=== PATIENT | male | born 1985 ===

== ENCOUNTER 2019-09-25 11:17 | Emergency (ER) | payer SELFPAY ==
[2019-09-25 12:15] LABS: Basophils # (Auto) 0.1 K/mm3 (0.0-0.1); Basophils % (Auto) 0.4 % (0.0-1.8); Hematocrit 42.2 % (35.5-45.6); Hemoglobin 14.5 gm/dl (11.8-15.2); Lymphocytes # (Auto) 1.2 K/mm3 (1.2-5.4); Lymphocytes % (Auto) 7.4 % (13.4-35.0); Mean Corpuscular HGB Conc 34 % (32-34); Mean Corpuscular Volume 90 fl (84-94); Monocytes % (Auto) 6.2 % (0.0-7.3); Platelet Count 342 K/mm3 (140-440); Red Blood Count 4.72 M/mm3 (3.65-5.03)
[2019-09-25 12:39] LABS: Alanine Aminotransferase 57 units/L (7-56); Albumin 5.1 g/dL (3.9-5); BUN/Creatinine Ratio 14; Blood Urea Nitrogen 14 mg/dL (9-20); Calcium 9.9 mg/dL (8.4-10.2); Hemolysis Index 7
--- NOTE | 2019-09-25 14:31 | Emergency Department Report ---
<JG SANON - Last Filed: 09/25/19 15:41> ED General Adult HPI - General Chief complaint: Psych Stated complaint: HALLUCINATIONS Time Seen by Provider: 09/25/19 11:26 - Related Data Allergies Allergy/AdvReac Type Severity Reaction Status Date / Time No Known Allergies Allergy Unverified 09/25/19 11:35 ED Course - Reevaluation(s) Reevaluation #1: 09/25/19 15:41 I was asked to reassess patient. This gentleman is paranoid agitated. He is breaking his hands against a wall. He keeps asking "are we going to "" "I do not know if I killed her "" I asked if he would allow us to give him medicine. He said yes. I have ordered Geodon for chemical restraint ED Medical Decision Making - Lab Data Result diagrams: 09/25/19 11:50 09/25/19 11:50 ED Disposition Clinical Impression: Psychosis, Methamphetamine use Disposition: [id number]/TX-65 PSY HOSP/PSY UNIT Condition: Stable Referrals: PRIMARY CARE, [Primary Care Provider] - 3-5 Days <WALLACE SULTANA - Last Filed: 09/26/19 15:21> ED General Adult HPI - General Source: patient Mode of arrival: Ambulatory Limitations: No Limitations - History of Present Illness Initial comments: Patient presents to the emergency department via EMS via a call from local PD for patient walking in the middle of traffic. They state that PD was concerned because patient was paranoid. Patient endorses using methamphetamine with " 2 white girls". Patient states that he is used methamphetamine twice in the last couple of weeks but normally does not use it. Patient denies a history of psychiatric issues and also denies homicidal suicidal ideation. Patient states earlier today he was seeing pains and hearing things but that has improved significantly. Patient states he currently does not want hurt himself or hurt anyone else. -: Sudden Severity scale (0 -10): 0 Consistency: constant Improves with: none Worsens with: none Associated Symptoms: denies other symptoms Treatments Prior to Arrival: none ED Review of Systems ROS: Stated complaint: HALLUCINATIONS Other details as noted in HPI Comment: All other systems reviewed and negative Constitutional: denies: chills, fever Eyes: denies: eye pain, eye discharge, vision change ENT: denies: ear pain, throat pain Respiratory: denies: cough, shortness of breath, wheezing Cardiovascular: denies: chest pain, palpitations Endocrine: no symptoms reported Gastrointestinal: denies: abdominal pain, nausea, diarrhea Genitourinary: denies: urgency, dysuria Musculoskeletal: denies: back pain, joint swelling, arthralgia Skin: denies: rash, lesions Neurological: denies: headache, weakness, paresthesias Psychiatric: denies: anxiety, depression Hematological/Lymphatic: denies: easy bleeding, easy bruising ED Past Medical Hx - Past Medical History Previous Medical History?: No - Surgical History Past Surgical History?: No Additional Surgical History: R leg - Social History Smoking Status: Current Every Day Smoker Substance Use Type: Alcohol, Cocaine, Marijuana, Methamphetamines ED Physical Exam - General Limitations: No Limitations General appearance: alert, in no apparent distress - Head Head exam: Present: atraumatic, normocephalic - Eye Eye exam: Present: normal appearance, PERRL, EOMI - ENT ENT exam: Present: mucous membranes moist - Neck Neck exam: Present: normal inspection - Respiratory Respiratory exam: Present: normal lung sounds bilaterally. Absent: respiratory distress - Cardiovascular Cardiovascular Exam: Present: regular rate, normal rhythm. Absent: systolic murmur, diastolic murmur, rubs, gallop - GI/Abdominal GI/Abdominal exam: Present: soft, normal bowel sounds. Absent: distended, tenderness - Rectal Rectal exam: Present: deferred - Extremities Exam Extremities exam: Present: normal inspection - Back Exam Back exam: Present: normal inspection - Neurological Exam Neurological exam: Present: alert, oriented X3 - Psychiatric Psychiatric exam: Present: normal affect, normal mood. Absent: homicidal ideati on, suicidal ideation - Skin Skin exam: Present: warm, dry, intact, normal color. Absent: rash ED Course Vital Signs 09/25/19 09/25/19 09/25/19 11:44 14:22 15:30 Temperature 98.4 F Pulse Rate 110 H 89 Respiratory 22 18 18 Rate Blood Pressure 160/100 164/97 [Left] O2 Sat by Pulse 100 Oximetry 09/25/19 09/25/19 09/26/19 16:54 20:10 02:05 Temperature 98.3 F 98.4 F Pulse Rate 73 74 Respiratory 15 18 16 Rate Blood Pressure 137/77 152/91 [Left] O2 Sat by Pulse 100 99 Oximetry 09/26/19 08:47 Temperature 98.6 F Pulse Rate 75 Respiratory 20 Rate Blood Pressure 128/89 [Left] O2 Sat by Pulse 98 Oximetry ED Medical Decision Making - Lab Data Result diagrams: 09/25/19 11:50 09/25/19 11:50 - Medical Decision Making awaiting medical clearance and Mental Health Evaluation Critical care attestation.: If time is entered above; I have spent that time in minutes in the direct care of this critically ill patient, excluding procedure time. ED Disposition Is pt being admited?: No Does the pt Need Aspirin: No
[2019-09-25] MEDS ORDERED: ZIPRASIDONE MESYLATE 20 MG VIAL IM ONE (15:40)
[2019-09-25] MEDS ORDERED: WATER FOR INJ Sterile (PF) 10 ML ONE (15:48)
[2019-09-25 16:19] LABS: Benzodiazepines Screen,Urine PRESUMPTIVE NEGATIVE; Bilirubin,Urine NEG (Negative); Blood,Urine NEG (Negative); Color,Urine Yellow (Yellow); Methadone Screen,Urine PRESUMPTIVE NEGATIVE; Mucus,Urine 2+ /HPF; Opiate Screen,Urine PRESUMPTIVE NEGATIVE; Urobilinogen,Urine < 2.0 mg/dL (<2.0)
[2019-09-25 16:31] LABS: Amphetamine Screen,Urine PRESUMPTIVE POSITIVE; Cannabinoid Screen,Urine PRESUMPTIVE POSITIVE; Cocaine Screen,Urine PRESUMPTIVE POSITIVE
--- NOTE | 2019-09-26 09:06 | Consultation ---
History of Present Illness - Reason for Consult Consult date: 09/26/19 Reason for consult: Drug-induced psychosis Requesting physician: JG SANON - Chief Complaint Chief complaint: I think I killed a little girl - History of Present Psychiatric Illness The patient is a 33yo single employed male with history of Polysubstance use disorder. He presents with paranoia. UDS was positive for Cocaine, Amphetamine and THC. Psychiatry consulted to evaluate, treat and recommend disposition. Per ED provider: Patient presents to the emergency department via EMS via a call from local PD for patient walking in the middle of traffic. They state that PD was concerned because patient was paranoid. Patient endorses using methamphetamine with " 2 white girls". Patient states that he is used methamphetamine twice in the last couple of weeks but normally does not use it. Patient denies a history of psychiatric issues and also denies homicidal suicidal ideation. Patient states earlier Patient continues to be very paranoid this morning. He is afraid of stepping out of the ED for fear that there are people looking for him, including the police. He repeatedly asks if he is on the News. He states "I think I killed a little girl, I think I raped her, I am not sure, I was high on drugs. He completely denies suicidal or homicidal thoughts. PAST PSYCHIATRIC HISTORY: Polysubstance use disorder PAST MEDICAL HISTORY: none Family Psychiatric History None reported or documented SOCIAL HISTORY Marital Status: Single Living Arrangements: with mother Employment Status: employed Access to guns/weapons: Patient denies Education: High School History of Abuse: Patient denies Legal History: Patient denies ROS: Constitutional: Negative for weight loss ENT: Negative for stridor Respiratory: Negative for cough or hemoptysis All other systems reviewed and are negative MENTAL STATUS General Appearance and Behavior: age appropriate, good eye contact, cooperative with questioning and polite Cooperation: Cooperative Psychomotor Behavior: within normal limits Mood: OK Affect and affective range: Congruent with stated mood Thought Process: Fluent/Logical and Goal-directed Thought Content: Paranoid Speech: Normal volume and Regular rate and rhythm Intellectual Functioning Average Suicidal Ideation: Denies SI Homicidal Ideation: Denies HI Impulse Control: intact Insight and Judgment: normal insight and judgment Memory: Normal Attention: Normal Orientation: alert and oriented Diagnosis: Substance induced psychosis Polysubstance (Cocaine, Amphetamine and THC) use disorder RECOMMENDATIONS MEDICATIONS: Olanzapine 5mg bid Risks, benefits and alternatives of medications discussed with the patient, questions answered and consent obtained from patient. PSYCHOTHERAPY: Supportive psychotherapy provided MEDICAL: Per primary team WARP DRAWER: Yes DISPOSITION: Acute inpatient psychiatric hospitalization when medically stable LEGAL STATUS: 1013 FOLLOW-UP: Will follow Medications and Allergies Allergies Allergy/AdvReac Type Severity Reaction Status Date / Time No Known Allergies Allergy Unverified 09/25/19 11:35 Mental Status Exam - Vital signs Last Vital Signs Temp 98.6 F 09/26/19 08:47 Pulse 75 09/26/19 08:47 Resp 20 09/26/19 08:47 BP 128/89 09/26/19 08:47 Pulse Ox 98 09/26/19 08:47 Results Result Diagrams: 09/25/19 11:50 09/25/19 11:50 Abnormal lab results 09/25/19 09/25/19 09/25/19 Range/Units 11:50 11:50 11:50 WBC 15.9 H (4.5-11.0) K/mm3 RDW 13.0 L (13.2-15.2) % Lymph % (Auto) 7.4 L (13.4-35.0) % Rooks # 1.0 H (0.0-0.8) K/mm3 Seg Neutrophils % 86.0 H (40.0-70.0) % Seg Neutrophils # 13.7 H (1.8-7.7) K/mm3 Carbon Dioxide 20 L (22-30) mmol/L Glucose 101 H (75-100) mg/dL AST 52 H (5-40) units/L ALT 57 H (7-56) units/L Total Protein 8.8 H (6.3-8.2) g/dL Albumin 5.1 H (3.9-5) g/dL Urine WBC (Auto) (0.0-6.0) /HPF Salicylates < 0.3 L (2.8-20.0) mg/dL Acetaminophen (10.0-30.0) ug/mL 09/25/19 09/25/19 Range/Units 11:50 16:00 WBC (4.5-11.0) K/mm3 RDW (13.2-15.2) % Lymph % (Auto) (13.4-35.0) % Rooks # (0.0-0.8) K/mm3 Seg Neutrophils % (40.0-70.0) % Seg Neutrophils # (1.8-7.7) K/mm3 Carbon Dioxide (22-30) mmol/L Glucose (75-100) mg/dL AST (5-40) units/L ALT (7-56) units/L Total Protein (6.3-8.2) g/dL Albumin (3.9-5) g/dL Urine WBC (Auto) 10.0 H (0.0-6.0) /HPF Salicylates (2.8-20.0) mg/dL Acetaminophen < 5.0 L (10.0-30.0) ug/mL All other labs normal.
[2019-09-27 07:34] VITALS: BP 136/70
--- NOTE | 2019-09-27 08:58 | Progress Note ---
Subjective - Reason for Consult Consult date: 09/27/19 Reason for consult: Psych follow up - Chief Complaint Chief complaint: I was high on drugs. SUBJECTIVE: Patient seen by me this morning. He is alert, calm, fully oriented and pleasant. He states that he was high on drugs yesterday. He is able to think clearly now and denies SI/HI/AVH/Paranoia. He feels safe going home and promises to never use drugs again. ROS: Constitutional: Negative for weight loss ENT: Negative for stridor Respiratory: Negative for cough or hemoptysis All other systems reviewed and are negative MENTAL STATUS General Appearance and Behavior: age appropriate, good eye contact, cooperative with questioning and polite Cooperation: Cooperative Psychomotor Behavior: within normal limits Mood: OK Affect and affective range: Congruent with stated mood Thought Process: Fluent/Logical and Goal-directed Thought Content: normal Speech: Normal volume and Regular rate and rhythm Intellectual Functioning Average Suicidal Ideation: Denies SI Homicidal Ideation: Denies HI Impulse Control: intact Insight and Judgment: normal insight and judgment Memory: Normal Attention: Normal Orientation: alert and oriented Diagnosis: Substance induced psychosis - Resolve Polysubstance (Cocaine, Amphetamine and THC) use disorder RECOMMENDATIONS MEDICATIONS: Decrease Olanzapine to 5mg qhs Risks, benefits and alternatives of medications discussed with the patient, questions answered and consent obtained from patient. PSYCHOTHERAPY: Supportive psychotherapy provided MEDICAL: Per primary team SENIOR WAREHOUSE CLERK: No DISPOSITION: No indication for acute inpatient psychiatric hospitalization at this time LEGAL STATUS: 1013 rescinded FOLLOW-UP: Will sign off Mental Status Exam - Vital signs Last Vital Signs Temp 98.2 F 09/27/19 07:33 Pulse 65 09/27/19 07:33 Resp 20 09/27/19 07:33 BP 136/70 09/27/19 07:33 Pulse Ox 99 09/27/19 07:33
== END 2019-09-27 12:29 | disposition home or self-care (01) ==
LOC: ED 11:17 → EEVIPCON 11:17 → ED 09-27 12:29
DX: F15.159 Other stimulant abuse with stimulant-induced psychotic disorder, unspecified (principal); F60.0 Paranoid personality disorder; F17.200 Nicotine dependence, unspecified, uncomplicated; F12.10 Cannabis abuse, uncomplicated; F14.10 Cocaine abuse, uncomplicated; Z98.890 Other specified postprocedural states
CPT/HCPCS: 36415; 80053; 80307; 81001; 85025; 87086; 96372; 99284; J3486; 80320; G0480